=== PATIENT | male | born 1935 | race Caucasian/White ===

== ENCOUNTER 2016-08-25 23:28 | Inpatient (IN) | payer MEDICARE ==
[~2016-08-25] VITALS: Ht 172.7 cm; Wt 75.4 kg
--- NOTE | ~2016-08-25 | HP ---
PATIENT'S NAME: KARIN JEFFERSON [facility] AGE: 81 Y [address] ROOM: [place] [address] LOCATION: GPCU ADMIT DATE: 08/26/2016 History & Physical DISCHARGE DATE: FAMILY PHYSICIAN: PHYSICIAN, UNKNOWN ATTENDING PHYSICIAN: DELMER NUNEZ V DATE OF SERVICE: CHIEF COMPLAINT: Altered mental status. HISTORY OF PRESENT ILLNESS: This is primarily obtained from the transferring facility. The patient is an 81-year-old male whose past medical history is listed as a recent CVA requiring a stay at the [facility], with subsequent significant aphasia. Per accompanying chart, he was taken to the ER in [facility] when he was found altered by the family. He was found to have a fever of 103 at the outside facility. The workup there also revealed a bilirubin of slightly above 3, normal white count, and a positive urine. A CAT scan revealed bilateral pleural effusions, a small pocket of abdominal ascites, and bilateral renal cysts and nonobstructive stones. At this point, unfortunately this history taking is quite difficult as the patient has significant aphasia. He denies any chest pain, shortness of breath, nausea, vomiting, diarrhea, palpitations, though again the reliability of his answers is in question. REVIEW OF SYSTEMS: All 10 systems have been reviewed and are negative aside from pertinent positives mentioned above. PAST MEDICAL HISTORY: As imputed from the chart; coronary artery disease, history of stents, history of stroke, hyperlipidemia, constipation, expressive aphasia. CURRENT MEDICATIONS: Again from the chart, 1. Xarelto. 2. Colace. 3. Atorvastatin. 4. Coenzyme Q10. 5. Melatonin. PATIENT'S NAME: TRACI FRAZIER [facility] AGE: 81 Y [address] ROOM: [place] [address] LOCATION: GPCU ADMIT DATE: 08/26/2016 History & Physical DISCHARGE DATE: FAMILY PHYSICIAN: PHYSICIAN, UNKNOWN ATTENDING PHYSICIAN: DELMER NUNEZ V 6. Aspirin 81. 7. Provigil. 8. Amantadine. SOCIAL HISTORY: Also extracted from the chart, apparently negative for any toxic habits. FAMILY HISTORY: Cannot be obtained due to his aphasia. PHYSICAL EXAMINATION: VITAL SIGNS: Saturating 95% on room air, blood pressure 158/69, heart rate is in the 80s and irregular, respirations are 16. GENERAL: Appears as a chronically ill, elderly male, in no acute distress. NEUROLOGIC: Significant for significant aphasia. EYES: Pupils are equal and reactive to light. LYMPHATIC: No cervical lymphadenopathy. ENDOCRINE: No thyromegaly. ENT: Dry mucous membranes. LUNGS: Diminished breath sounds bilaterally. HEART: Irregular rate and rhythm with a 2/6 systolic murmur. ABDOMEN: Soft, nontender, nondistended. Normoactive bowel sounds. No tenderness or rebound. Feliz's sign is negative. : No costovertebral angle tenderness. VASCULAR: 2+ pedal pulses. SKIN: 2+ pedal edema with bilateral erythema and warmth. PSYCHIATRIC: Cannot be assessed due to expressive aphasia. MUSCULOSKELETAL: Unremarkable. LABORATORY DATA: Review of studies from the outside facility as per HPI. ASSESSMENT AND PLAN: This is an 81-year-old male who will be admitted with, 1. Altered mental status. We will need to get more information from the family. I am not sure of what the patient's mental status is now compared to his baseline or the incidence when he was found today. 2. Febrile illness. At this point, the patient certainly does not appear septic. We will repeat urinalysis and urine culture. We will presumptively treat him for a urinary tract infection as well as a possible biliary source for his infection given a dilated gallbladder as well as an elevated bilirubin. 3. The patient appears to be considerably volume overloaded based on his bilateral pleural effusions and lower extremity edema. We will get a 2- dimensional echocardiogram of his heart to assess his LV function and PATIENT'S NAME: KARIN TRACI I AGE: 81 Y [address] ROOM: [address] [place], [place] [address] [facility] ADMIT DATE: 08/26/2016 History & Physical DISCHARGE DATE: FAMILY PHYSICIAN: PHYSICIAN, UNKNOWN ATTENDING PHYSICIAN: DELMER NUNEZ V request records from the outside facility where he was treated for his stroke. 4. Anticoagulation therapy with Xarelto. We will hold off on the Xarelto. 5. Questionable lower extremity cellulitis based on the exam. We will try and cover with the same agent that we will use to cover urinary tract infection and possible biliary infection. 6. Bilirubin elevation. We will get an ultrasound of his right upper quadrant. 7. Ascites on the CAT scan. This appears to be minor. We will follow clinically. 8. Constipation. We will upgrade the patient's bowel regimen. 9. Additional management will depend on clinical course. Time taken for this patient's encounter is 35 minutes. MD MANINDER EDWARDS/janette /[id number] D: [id number] T: [id number] HISTORY & PHYSICAL
--- NOTE | ~2016-08-25 | DS ---
[facility] 81 Y [address] ROOM: [place] [address] LOCATION: GPCU ADMIT DATE: 08/26/2016 Discharge Summary DISCHARGE DATE: 08/28/2016 FAMILY PHYSICIAN: Physician, Unknown ATTENDING PHYSICIAN: Mariano Thompson V PRIMARY DIAGNOSES: 1. Systemic inflammatory response syndrome. 2. Acute encephalopathy. 3. Klebsiella oxytoca bacteremia. 4. Urinary tract infection. 5. Paroxysmal atrial fibrillation. 6. 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 7. Coronary artery disease. 8. Alcoholic liver disease. OPERATIONS/PROCEDURES: CT scan of the head was performed 08/26/2016 demonstrating no acute intracranial abnormalities. HISTORY OF PRESENTING ILLNESS/REASON FOR ADMISSION: Please refer to the H and P dictated on 08/26/2016. HOSPITAL COURSE: The patient was admitted to the hospital as noted above with a presumptive diagnosis of acute encephalopathy. An infectious source was suspected. He received broad-spectrum antibiotic therapy with Rocephin. Urine studies from an outlying facility did suggest presence of urinary tract infection. Unfortunately, cultures were not performed there. Blood cultures here did show Klebsiella oxytoca. His antibiotic regimen was switched to oral Levaquin and he tolerated that well. By the second hospital day, he was essentially back at baseline. He did receive speech therapy, physical therapy, and occupational therapy , and showed some progress. By the 3rd day, he was felt to be back at baseline and his sons requested to take him home. At that point, it was felt he would be stable enough for discharge home with plans for close clinical follow up with primary care provider, Dr. Awad. DISCHARGE INSTRUCTIONS: 1. Diet: Regular as tolerated. 2. Activity as tolerated. MEDICATIONS: 1. Levaquin 750 mg p.o. daily x5 more days. 2. Amantadine 100 mg p.o. b.i.d. 3. Aspirin 81 mg p.o. daily. PATIENT'S NAME: TRACI FRAZIER [facility] AGE: 81 Y [address] ROOM: [place] [address] LOCATION: GPCU ADMIT DATE: 08/26/2016 Discharge Summary DISCHARGE DATE: 08/28/2016 FAMILY PHYSICIAN: Physician, Unknown ATTENDING PHYSICIAN: Mariano Thompson V 4. Atorvastatin 40 mg p.o. q.h.s. 5. Colace 300 mg p.o. t.i.d. 6. Melatonin 3 mg p.o. q.h.s. 7. Modafinil 100 mg p.o. daily. 8. Xarelto 15 mg p.o. daily. 9. CoQ10 daily. 10. MiraLAX 17 g p.o. daily. FOLLOW UP: He will follow up with Dr. Awad in the [facility] in 3-5 days. CONDITION ON DISCHARGE: Good. Total time spent on discharge process was 45 minutes. MD DANAY ONEAL/janette /[id number] d: 08/29/16 0425 t: 08/30/16 1612, DISCHARGE SUMMARY
--- NOTE | ~2016-08-25 | ECHO ---
Transthoracic Echocardiography Report (TTE) Demographics Patient Name TRACI FRAZIER I Date of Study 08/26/2016 Patient Number [id number] Visit Number [id number] Date of 1935 Room Number G6307 Gender Male Number Age 81 year(s) Referring Donna Quintana V Wardrobe Specialist Michael Lao RVT Physician MD Shara Olea Physician Interpreting Jason Giles Manager Material Physician Supervising Ordering Donna Otoole MD/MLP Physician MD Nurse Stress Supervisor Inventory Merchandising Conclusions Contractility Score Summary Normal Left Ventricular contractility was noted. Summary Technically difficult exam. Normal LV size and systolic function. The estimated left ventricular ejection fraction is 60%. Moderate concentric left ventricular hypertrophy. Diastolic assessment reveals Grade II pseudonormal diastolic function . Moderately dilated right ventricle with moderately reduced right ventricular function. Severe biatrial enlargement. IVC measures 2.21 cm with partial inspiratory collapse. Severe mitral annular calcification. The mean gradient is 8 mmHg. Mild mitral regurgitation by color Doppler. 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 There is mild aortic stenosis by the Continuity Equation. The peak velocity is 2.41 m/s, the mean gradient is 13 mmHg, there appears to be a bioprosthetic AV without paravalvular regurgitation. Moderate-severe tricuspid regurgitation by color Doppler. There is severe pulmonary hypertension. The pulmonary pressure (RVSP) is 69 mmHg. Procedure Type of Study TTE procedure:2D Echocardiogram, M-Mode, Doppler , Color Doppler. Procedure Date Date: 08/26/2016 Start: 07:35 AM Study Location: Inpatient Portable Technical Quality: Fair Indications:Pleural effusion, edema and Congestive heart failure. Appropriate Use Criteria: 9 Patient Status: Routine HR: 82 bpm BP: 158/69 mmHg M-Mode/2D Measurements LV Diastolic Dimension: 3.07 cm LV Systolic Dimension: 2.13 cm LV Septum Diastolic: 1.48 cm LV PW Diastolic: 1.39 cm AO Root Dimension: 3 cm Cardiac Output: 2.97 l/min LA Dimension: 4.1 cm LVOT: 1.6 cm LVOT VTI: 18 cm RV Base: 4.16 cm LV Stroke volume: 36.17 ml RV Length: 6.25 cm TAPSE: 1.04 cm TDI-S': 8.99 cm/s Doppler Measurements AV Peak Velocity: 2.41 m/s MV Peak E-Wave: 2.21 m/s AV Peak Gradient: 23.23 mmHg MV Peak A-Wave: 1.34 m/s AV Mean Gradient: 13 mmHg MV E/A Ratio: 1.65 LVOT Peak Velocity: 0.73 m/s MV P1/2t: 65 msec TR Velocity:3.91 m/s MV Deceleration Time: 218 msec Estimated RAP:8 mmHg PV Peak Velocity: 1.13 m/s Estimated RVSP: 69 mmHg PV Peak Gradient: 5.11 mmHg E' Septal Velocity: 0.04 m/s Estimated PASP: 69.15 mmHg E' Lateral Velocity: 0.08 m/s A' Septal Velocity: 0.04 m/s A' Lateral Velocity: 0.05 m/s Findings Left Ventricle The left ventricle is normal in size . Moderate concentric left ventricular hypertrophy. Diastolic assessment reveals Grade II pseudonormal diastolic function . Right Ventricle Moderately dilated right ventricle. Moderately reduced right ventricular function. Left Atrium The left atrium is severely dilated. Right Atrium The right atrium is severely dilated. IVC measures 2.21 cm with partial inspiratory collapse. Mitral Valve Severe mitral annular calcification. 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 Moderate mitral valve stenosis. The mean gradient is 8 mmHg. Mild mitral regurgitation by color Doppler. Aortic Valve There is mild aortic stenosis by the Continuity Equation. The peak velocity is 2.41 m/s, the mean gradient is 13 mmHg, The peak velocity is 2.41 m/s, the mean gradient is 13 mmHg, there appears to be a bioprosthetic AV without paravalvular regurgitation. Tricuspid Valve Moderate-severe tricuspid regurgitation by color Doppler. There is severe pulmonary hypertension. The pulmonary pressure (RVSP) is 69 mmHg. Pulmonic Valve The pulmonic valve is not well visualized. Pericardial Effusion No evidence of pericardial effusion. Miscellaneous Visualized portions of the aortic root and ascending aorta appear normal in size. Pleural Effusion No evidence of pleural effusion. Contractility Score LV regional wall motion:(0-Non visualized 1-Normal 2-Hypokinesis 3-Akinesis 4-Dyskinesis 5-Aneurysm) Signature Electronically signed by Jason Giles MD([facility] physician) on 08/26/2016 12:26 PM dtt: JARROD KING dtd: 08/26/16 0735 Physician Self Edit
[2016-08-26] MEDS ORDERED: XARELTO10 MG PO (02:22)
[2016-08-26] MEDS ORDERED: LIPITOR40 MG PO (02:24)
[2016-08-26] MEDS ORDERED: COLACE100 MG PO (02:24)
[2016-08-26] MEDS ORDERED: CO Q-10100 MG PO (02:25)
[2016-08-26] MEDS ORDERED: MELATIN3 MG PO (02:26)
[2016-08-26] MEDS ORDERED: ASPIRIN LO-DOSE81 MG PO (02:26)
[2016-08-26] MEDS ORDERED: PROVIGIL100 MG PO (02:27)
[2016-08-26] MEDS ORDERED: AMANTADINE100 M1 PO (02:28)
[2016-08-26 03:57] LABS: BASOPHIL # 0.1 K/uL (0.0-0.2); BASOPHIL % 0.4 %; EOSINOPHIL # 0.1 K/uL (0.0-0.5); EOSINOPHIL % 0.4 %; HEMATOCRIT 43.4 % (33.0-50.0); HEMOGLOBIN 14.6 g/dL (11.0-16.0); IMMATURE GRANULOCYTE # 0.1 K/uL (0.0-0.3); LYMPHOCYTE # 1.1 K/uL (0.8-4.0); LYMPHOCYTE % 8.2 %; MCH 33.1 pg (27.0-34.0); MCHC 33.6 gm/dL (32.0-36.5); MCV 98.4 fl (83.0-98.0); MONOCYTE # 1.3 K/uL (0.0-1.0); MONOCYTE % 9.8 %; MPV 10.2 fl (9.4-12.4); NEUTROPHIL % 80.2 %; NRBC % 0 /100WBC (0-0.00); PLATELET COUNT 91 K/uL (150-450); RBC 4.41 M/uL (3.50-5.50); RDW-CV 15.1 % (11.9-14.6); WBC 13.7 K/uL (4.0-11.0)
--- NOTE | 2016-08-26 04:12 | NUR ---
Patient admit to floor from [facility] for possible sepsis. [facility] facility reported temp of 103.3. He was started on vanco and zosyn IV and NS at 50ml/hr. Patient arrives to floor at 0200. Has a history of a CVA one month ago and spent approx. 3 weeks at [facility] and had just moved to [place] recently to be closer to family. Has expressive aphasia and responds to questions inappropriately at times. SLIV to R) inner forearm 22g and IV infusing antibiotic in L) anterior forearm. Patient does not give any type of response to inquiry about pain but seems to have discomfort. Avina cath in draining concentrated, cloudy yellow urine. CT at other facility shows pleural effusion and some ascites. Patient has elevated liver enzymes. Bilateral LL are warm to touch and red. LADONNA gait at this time. ECHO ordered and patient is NPO for ultrasound. On R/A. Patient family to come today.
[2016-08-26 04:16] LABS: ALBUMIN 2.6 gm/dL (3.5-5.0); ALK PHOS 128 IU/L (33-138); ALT 27 IU/L (12-78); ANION GAP 14.1 (10.0-19.0); AST 43 IU/L (10-40); BLOOD UREA NITROGEN 11 mg/dL (6-24); CALCIUM 8.3 mg/dL (8.5-10.5); CHLORIDE 106 mMol/L (96-110); CO2 22 mMol/L (22-32); CREATININE 0.8 mg/dL (0.6-1.3); ESTIMATED GFR (MDRD EQUATION) > 60; MAGNESIUM 1.6 mg/dL (1.8-2.6); PHOSPHORUS 2.6 mg/dL (2.5-4.9); POTASSIUM 4.1 mMol/L (3.7-5.1); SODIUM 138 mMol/L (135-145); TOTAL BILIRUBIN 3.3 mg/dL (0.0-1.5); TOTAL PROTEIN 6.7 g/dL (6.0-8.4)
[2016-08-26] MEDS ORDERED: PLAVIX75 MG (13:17)
[2016-08-26] MEDS ORDERED: MIRALAX PO527 GM/BOT PO (13:18)
--- NOTE | 2016-08-26 14:03 | NUR ---
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 they do have a record of 05/1999 for his last pneumonia shot given there.
--- NOTE | 2016-08-26 14:24 | NUR ---
Introduced self and role of care management to pt's son from [place]. He got to speak with me briefly. he stated he just moved down to [place] with his daughter after suffering a large stroke. He states for the most part he has gotten his physcial part back but does have expressive aphasia along with intermittent confusion. He stated up until this all happened he was doing pretty well. He states is sister is POA [phone] and owns her own business and cares for him. He does continue to go to therapy down there as well. At this time pt was leaving for a test and son did go with. WIll continue to follow and try to talk with daughter what plans maybe on discharge.
--- NOTE | 2016-08-26 16:17 | NUR ---
Significant Event: Alert. Expressive aphasia, unable to determine orientation. Nods correctly at times to questions asked. Room air. SBP 144, 121 and 112. HR 60's and 70's. Up with 1 assist and gait belt. Alarms on at all times. X-large loose BM this shift. Avina catheter intact draining dark concentrated urine. 575 ml out this shift. Family at bedside throughout shift. Pleasant and cooperative with cares. Follow up:
[2016-08-27 03:19] LABS: BASOPHIL # 0.1 K/uL (0.0-0.2); BASOPHIL % 0.8 %; EOSINOPHIL # 0.7 K/uL (0.0-0.5); EOSINOPHIL % 7.6 %; HEMATOCRIT 42.3 % (33.0-50.0); HEMOGLOBIN 14.1 g/dL (11.0-16.0); IMMATURE GRANULOCYTE % 0.3 %; LYMPHOCYTE # 1.4 K/uL (0.8-4.0); LYMPHOCYTE % 14.8 %; MCH 33.3 pg (27.0-34.0); MCHC 33.3 gm/dL (32.0-36.5); MONOCYTE # 0.9 K/uL (0.0-1.0); MONOCYTE % 10.1 %; NEUTROPHIL # (ANC) 6.1 K/uL (1.4-9.0); NEUTROPHIL % 66.4 %; NRBC % 0 /100WBC (0-0.00); PLATELET COUNT 92 K/uL (150-450); RBC 4.23 M/uL (3.50-5.50); RDW-CV 15.2 % (11.9-14.6); WBC 9.2 K/uL (4.0-11.0)
[2016-08-27 03:36] LABS: ALBUMIN 2.1 gm/dL (3.5-5.0); ALK PHOS 114 IU/L (33-138); ALT 24 IU/L (12-78); ANION GAP 10.7 (10.0-19.0); AST 35 IU/L (10-40); BLOOD UREA NITROGEN 14 mg/dL (6-24); CALCIUM 8.2 mg/dL (8.5-10.5); CHLORIDE 108 mMol/L (96-110); CO2 22 mMol/L (22-32); CREATININE 0.8 mg/dL (0.6-1.3); ESTIMATED GFR (MDRD EQUATION) > 60; POTASSIUM 3.7 mMol/L (3.7-5.1); SODIUM 137 mMol/L (135-145); TOTAL PROTEIN 5.8 g/dL (6.0-8.4)
[2016-08-27 03:37] LABS: TOTAL BILIRUBIN 1.8 mg/dL (0.0-1.5)
--- NOTE | 2016-08-27 04:32 | NUR ---
ALERT BUT HAS EXPRESSIVE APASHIA. VSS STABLE ON R/A. HAMILTON CATH IN PLACE 750ML CONCENTRATED URINE OUTPUT. UP WITH 1 ASSIST. SLEPT MOST OF NOC. BED ALARM IN PLACE. VERSA ARCH SUPPORT MAKER ON BLL. CT SCAN UNREMARKABLE, SHOWING ONLY PREVIOUS CVA. ULTRASOUND OF ABDOMEN SHOWS LIVER CIRRO. ECHO 60% EF. NO BMS. RESTING QUIETLY IN BED. TO CON'T WITH PLAN OF CARE.
--- NOTE | 2016-08-27 10:36 | NUR ---
reviewed student charting and on the floor from [phone] peter rn-ccc
--- NOTE | 2016-08-27 17:11 | NUR ---
Significant Event: good day, UP IN CHAIR MOST OF THE MIDDLE OF THE DAY, STOOL WITH PT. TALKS FREELY BUT ALITTLE HARD TO UNDERSTAND. SEEMS APPROPRIATE WHEN ANSWERING QUESTIONS.WILL DC ALFONSO AND PUT ON BRIEFS, HE DOES AT HOME. LABS IN THE AM. Follow up: MONITOR
--- NOTE | 2016-08-28 04:33 | NUR ---
Significant events: Pt alert, expressive aphasia, impulsive at times. VSS. Up 1PA. No complaints of pain. Avina removed, incontinenet o furine. Slept most of shift. Possible home today.
[2016-08-28 04:39] LABS: BASOPHIL # 0.1 K/uL (0.0-0.2); BASOPHIL % 0.8 %; EOSINOPHIL # 0.7 K/uL (0.0-0.5); EOSINOPHIL % 10.3 %; HEMOGLOBIN 13.7 g/dL (11.0-16.0); IMMATURE GRANULOCYTE % 0.2 %; LYMPHOCYTE # 1.2 K/uL (0.8-4.0); LYMPHOCYTE % 18.2 %; MCH 33.2 pg (27.0-34.0); MCHC 33.4 gm/dL (32.0-36.5); MCV 99.3 fl (83.0-98.0); MONOCYTE # 0.8 K/uL (0.0-1.0); MONOCYTE % 12.1 %; MPV 10.4 fl (9.4-12.4); NEUTROPHIL # (ANC) 3.9 K/uL (1.4-9.0); NEUTROPHIL % 58.4 %; NRBC % 0 /100WBC (0-0.00); PLATELET COUNT 100 K/uL (150-450); RBC 4.13 M/uL (3.50-5.50); WBC 6.6 K/uL (4.0-11.0)
[2016-08-28 04:58] LABS: ALBUMIN 2.2 gm/dL (3.5-5.0); ANION GAP 11.8 (10.0-19.0); BLOOD UREA NITROGEN 16 mg/dL (6-24); CALCIUM 8.1 mg/dL (8.5-10.5); CHLORIDE 107 mMol/L (96-110); CO2 22 mMol/L (22-32); CREATININE 0.8 mg/dL (0.6-1.3); ESTIMATED GFR (MDRD EQUATION) > 60; PHOSPHORUS 2.8 mg/dL (2.5-4.9); POTASSIUM 3.8 mMol/L (3.7-5.1); SODIUM 137 mMol/L (135-145)
[2016-08-28] MEDS ORDERED: XARELTO15 MG PO (10:53)
[2016-08-28] MEDS ORDERED: LEVAQUIN750 MG PO (10:57)
--- NOTE | 2016-08-28 11:12 | NUR ---
reviewed student charting and on the floor from [phone] peter rn-ccc
--- NOTE | 2016-08-28 12:53 | NUR ---
i have read and agree with the student nurse's assessment of this pt. magno alexandra
--- NOTE | 2016-08-28 12:57 | NUR ---
1240 PT DISMISSED TO HOME WITH SON TO DRIVE. AT TIME OF DC PT IS ALERT, AND ORIENTED, SLURRED SPEECH FROM OLD CVA AND IS HARD TO UNDERSTAND, BUT IDF HE SLOWS DOWN IS EASIER. STEADY ON HIS FEET WHEN UP AND WALKING IN HALLS WITH P.T. AND NO ASSIST OF WALKER. PINK WAARM AND DRY. LUNGS ARE CLEAR ABDOMEN IS SOFT AND NONTENDER WITH ACTIVE BOWEL SOUNDS, PULSES STRONG HE HAS 1-2+ LOWER EXTREMITY EDEMA. PT DOES HAVE TUBA FOLDER HAND SOCKS ON. DISMISSAL INSTRUCTIONS, PRESCRIPTIONS, MEDICATIONS, FOLLOW UP CARE AND APPOINTMENTS ALL WENT OVER WITH PT AND SON, BOTH VERBALIZE UNDERSTNADING. W/C TO FRONT WEST TOWER LOBBY DOORS FOR DC TO HOME.
--- NOTE | 2016-08-29 05:02 | NUR ---
D: RECEIVED REPORTS FROM [facility] PER FAX AT 08/29/16 AT 0441. REPORTS SHOW: URINE CULTURE OF ESCHERICHIA COLI COLLECTED ON 08/25/16 BLOOD CULTURE OF GRAM POSITIVE COCCI IN CLUSTERS COLLECTED ON 08/25/16 BLOOD CULTURE OF GRAM POSITIVE BACILLI COLLECTED ON 08/25/16. I: RESULTS CALLED DR. NUNEZ. D: PT WAS D/C TO HOME ON 08/28/16 AT 1400. CALLED [facility], SPOKE WITH NICHOLE Dang RN. STAFF AT [facility] THAT RESULTS WERE FAXED EALIER ON 08/28/16. R: REPORTED RESULTS TO DR. NUNEZ, HOSPITALIST ON DUTY.
--- NOTE | 2016-09-02 15:05 | NUR ---
LATE MARANDA I spoke with son Carli [phone] who is from [place] regarding dc plans. Son states plan is home and is doing better. His sister is in [place] who normally handles everything but he does not want to bother her because her is having surery. Carli plans on staying with him until his sister returns. I asked about a walker and they will take a script but will see if they will fill it. Main concern is getting speech therapy. I did ask about this and if he is going outpt and he is not certain because he just got to them 5 days ago. I did mention [facility] for this and he thinks that might be a good idea. I called [facility] and they do have pt/ot/st and would be happy to see pt per Clarita. I did fax orders and updated pt's son. Will assist as needed.
== END 2016-08-28 12:40 | disposition disaster alternative care site (69) | DRG 71 ==
LOC: GPCU 08-26 01:53
PROVIDERS: Family Medicine; ADMIT Internal Medicine
PROC: B246ZZZ Ultrasonography of Right and Left Heart (ICD-10-PCS; principal; 2016-08-26)
DX: G93.40 Encephalopathy, unspecified (principal); J90 Pleural effusion, not elsewhere classified; R18.8 Other ascites; L03.119 Cellulitis of unspecified part of limb; R65.10 Systemic inflammatory response syndrome (SIRS) of non-infectious origin without acute organ dysfunction; I48.0 Paroxysmal atrial fibrillation; R78.81 Bacteremia; N39.0 Urinary tract infection, site not specified; E78.5 Hyperlipidemia, unspecified; I25.10 Atherosclerotic heart disease of native coronary artery without angina pectoris; I69.320 Aphasia following cerebral infarction; K59.00 Constipation, unspecified; N28.1 Cyst of kidney, acquired; K70.9 Alcoholic liver disease, unspecified
CPT/HCPCS: J0696; J3475; J7050